=== PATIENT | female | born 1950 | race Two or more races ===

== ENCOUNTER 2022-10-05 11:30 | Inpatient (IN) | payer OTHER ==
[~2022-10-05] VITALS: Ht 152.4 cm; Wt 42.6 kg
[2022-10-06] MEDS ORDERED: GABAPENTIN100 M2 PO (14:11)
[2022-10-11] MEDS ORDERED: OXYCODONE HCL5 MG PO (13:29)
== END 2022-10-11 16:12 | disposition home or self-care (01) | DRG 331 ==
LOC: O/R 10-08 07:32 → SURH 10-08 07:32
PROVIDERS: ADMIT Surgery; ATTEND Surgery
PROC: 07BB4ZZ Excision of Mesenteric Lymphatic, Percutaneous Endoscopic Approach (ICD-10-PCS; 2022-10-08)
PROC: 0DTF4ZZ Resection of Right Large Intestine, Percutaneous Endoscopic Approach (ICD-10-PCS; principal; 2022-10-08 14:00)
DX: C18.2 Malignant neoplasm of ascending colon (principal); Z20.822 Contact with and (suspected) exposure to COVID-19